=== PATIENT | female | born 1955 | race African-American/Black ===

== ENCOUNTER 2023-01-13 11:08 | Outpatient (CLI) | payer BC | END 2023-01-13 11:09 | disposition home or self-care (01) | LOC: CSHRAD 11:08 | PROVIDERS: ATTEND Family Medicine | DX: M79.672 Pain in left foot (principal); M25.562 Pain in left knee; Z91.81 History of falling ==

== ENCOUNTER 2023-05-11 15:24 | Outpatient (CLI) | payer BC | END 2023-05-11 15:25 | disposition home or self-care (01) | LOC: CSHMRI 15:24 | PROVIDERS: ATTEND Nurse Practitioner Family | DX: M47.816 Spondylosis without myelopathy or radiculopathy, lumbar region (principal); M51.26 Other intervertebral disc displacement, lumbar region | CPT/HCPCS: 72148 ==

== ENCOUNTER 2023-07-04 14:18 | Outpatient (CLI) | payer BC | END 2023-07-04 14:19 | disposition home or self-care (01) | LOC: CSHRAD 14:18 | PROVIDERS: ATTEND Family Medicine | DX: M54.6 Pain in thoracic spine (principal); R07.81 Pleurodynia; M47.814 Spondylosis without myelopathy or radiculopathy, thoracic region | CPT/HCPCS: 72072 ==

== ENCOUNTER 2024-05-02 07:24 | Emergency (ER) | payer BC ==
[2024-05-02] MEDS ORDERED: guaiFENesin 100 MG/5 ML UDCUP PO SCH (08:00)
[2024-05-02] MEDS ORDERED: GUAIFENESIN SF SOLN 200 MG/10 ML UDCUP PO SCH (08:00)
== END 2024-05-02 08:15 | disposition home or self-care (01) ==
LOC: CSHERS 07:24
DX: R05.9 Cough, unspecified (principal); I10 Essential (primary) hypertension; E11.9 Type 2 diabetes mellitus without complications
CPT/HCPCS: 71046